=== PATIENT | female | born 2000 | race Hispanic/Latino ===

== ENCOUNTER 2021-05-14 06:11 | Day surgery (SDC) | payer BC ==
[2021-05-13 16:39] VITALS: BMI 23.6
[2021-05-14 07:08] LABS: BHCG - Serum Negative (NEGATIVE); Pregs Control Background? CLEAR/WHITE (CLR/WHITE); Pregs Control Bar Appear? YES (CONTROL BAR)
[2021-05-14] MEDS ORDERED: Midazolam HCl 2 mg/2 ml Vial ONE (08:30)
[2021-05-14] MEDS ORDERED: Fentanyl 250 MCG/5 ML VIAL ONE ×2 (08:32→09:34)
[2021-05-14] MEDS ORDERED: Lidocaine 4% Topical Sol 50 ML BOT ONE (08:32)
[2021-05-14] MEDS ORDERED: Lidocaine 1% PF 5 ML VIAL ONE (08:39)
[2021-05-14] MEDS ORDERED: Dexamethasone 20 MG/5 ML VIAL ONE (08:39)
[2021-05-14] MEDS ORDERED: Ondansetron PF 4 MG/2 ML Vial ONE (08:39)
[2021-05-14] MEDS ORDERED: PROPOFOL 200 MG/20 ML VIAL ONE (08:39)
[2021-05-14] MEDS ORDERED: Succinylcholine 200 MG/10 ml SYRINGE FS ONE (08:39)
[2021-05-14] MEDS ORDERED: Rocuronium Bromide 10 MG/ML (10ML VIAL) ONE (08:39)
[2021-05-14] MEDS ORDERED: Ferric Subsulfate (ASTRINGYN) 8 GM VIAL ONE (08:50)
[2021-05-14] MEDS ORDERED: methylPREDNISolone Acetate 40 mg/ml Vial ONE (08:52)
[2021-05-14] MEDS ORDERED: Hydrocodone-Acetamin 15 ML UDCUP ONE (10:42)
== END 2021-05-14 11:21 | disposition home or self-care (01) ==
LOC: SDC 06:11
PROVIDERS: ATTEND Otolaryngology Plastic Surgery within the Head & Neck
PROC: 0CTPXZZ Resection of Tonsils, External Approach (ICD-10-PCS; principal; 2021-05-14)
PROC: 0CTQXZZ Resection of Adenoids, External Approach (ICD-10-PCS; principal; 2021-05-14)
DX: J35.03 Chronic tonsillitis and adenoiditis (principal); Z79.899 Other long term (current) drug therapy
CPT/HCPCS: 84703; 85014; 88304; J1100; J2250; J2405; J2704; J2920; J3010